=== PATIENT | male | born 1990 | race African-American/Black ===

== ENCOUNTER 2022-02-23 22:39 | Emergency (ER) | payer SELFPAY ==
[~2022-02-23] VITALS: Ht 180.3 cm; Wt 72.2 kg
[2022-02-23 22:55] VITALS: BP 132/71
== END 2022-02-24 03:50 | disposition left against medical advice (07) ==
LOC: ER 22:39
DX: Z53.21 Procedure and treatment not carried out due to patient leaving prior to being seen by health care provider (principal)